=== PATIENT | female | born 1980 | race Hispanic/Latino ===

== ENCOUNTER → 2023-07-12 06:46 | Outpatient (REF) | payer OTHER, SELFPAY ==
[2023-07-12 07:10] LABS: Urine Albumin Negative (Neg - Trace); Urine Bilirubin Negative (Negative); Urine Character Clear (Clear); Urine Color Yellow; Urine Glucose Negative (Negative); Urine Ketone Negative (Negative); Urine Leukocyte Negative (Negative); Urine Nitrite Negative (Negative); Urine Occult Blood 1+ (Negative); Urine Urobilinogen Negative (Neg - 1+)
[2023-07-12 07:45] LABS: Urine Red Blood Cell 0-2 /HPF (0-2); Urine White Cell 0-2 /HPF (0-5)
[2023-07-12 08:18] LABS: ALT (SGPT) 21 U/L (0-35); AST (SGOT) 26 U/L (14-36); Albumin 4.3 g/dl (3.5-5.0); Alkaline Phosphatase 106 U/L (38-126); Blood Urea Nitrogen 10 mg/dl (7-17); Carbon Dioxide 26 mmol/L (22-30); Chloride 103 mmol/L (98-107); Glucose 127 mg/dl (70-99); Potassium 3.9 mmol/L (3.5-5.1); Sodium 136 mmol/L (135-145); Total Bilirubin 0.5 mg/dl (0.2-1.3); Total Protein 7.1 g/dl (6.3-8.2); eGFR > 60.00
[2023-07-12 08:31] LABS: Glycohemoglobin (HgbA1c) 6.2 % (4.0-5.6)
[2023-07-12 08:40] LABS: Vitamin D, 25-OH*** 33.8 ng/mL (30-80)
== END ==
LOC: CLINIC 06:46
PROVIDERS: ATTENDING PHYSICIAN Nurse Practitioner Acute Care
DX: E55.9 Vitamin D deficiency, unspecified (principal); R73.03 Prediabetes; R31.21 Asymptomatic microscopic hematuria
CPT/HCPCS: 36415; 80053; 81003; 81015; 82306; 83036

== ENCOUNTER → 2023-07-15 09:20 | Outpatient (REF) | payer OTHER, SELFPAY ==
[2023-07-15 10:05] LABS: Urine Albumin Negative (Neg - Trace); Urine Bilirubin Negative (Negative); Urine Character Clear (Clear); Urine Color Yellow; Urine Glucose Negative (Negative); Urine Ketone Negative (Negative); Urine Leukocyte Negative (Negative); Urine Nitrite Negative (Negative); Urine Occult Blood Trace (Negative); Urine Urobilinogen Negative (Neg - 1+)
[2023-07-15 10:33] LABS: Urine Squamous Cell 16-20 /LPF (Few)
[2023-07-15 10:34] LABS: Urine Bacteria Few (Negative); Urine Red Blood Cell 0-2 /HPF (0-2)
== END ==
LOC: REG 09:20
PROVIDERS: ATTENDING PHYSICIAN Nurse Practitioner Acute Care
DX: R31.21 Asymptomatic microscopic hematuria (principal)
CPT/HCPCS: 81003; 81015; 87086

== ENCOUNTER → 2023-08-10 14:45 | Outpatient (REF) | payer OTHER, SELFPAY | LOC: CLINIC 14:45 | PROVIDERS: ATTENDING PHYSICIAN Nurse Practitioner Acute Care | DX: R31.9 Hematuria, unspecified (principal) | CPT/HCPCS: 76770 ==

== ENCOUNTER → 2023-08-18 16:04 | Outpatient (REF) | payer OTHER, SELFPAY ==
[2023-08-18 18:06] LABS: Calcium 10.1 mg/dl (8.4-10.2)
[2023-08-18 18:37] LABS: TSH Reflex To Free T4 2.76 uIU/ml (0.47-4.68)
[2023-08-20 08:57] LABS: Intact PTH 84.5 pg/ml (13.6-85.8)
== END ==
LOC: REG 16:04
DX: R31.9 Hematuria, unspecified (principal)
CPT/HCPCS: 36415; 83970; 84443

== ENCOUNTER → 2024-03-12 13:46 | Outpatient (REF) | payer OTHER, SELFPAY | LOC: WDC 13:46 | PROVIDERS: ATTENDING PHYSICIAN Internal Medicine | DX: Z12.31 Encounter for screening mammogram for malignant neoplasm of breast (principal) | CPT/HCPCS: 77063; 77067 ==

== ENCOUNTER 2024-10-12 22:47 | Emergency (ER) | payer SELFPAY ==
[2024-10-12 22:49] VITALS: BP 148/100
--- NOTE | 2024-10-12 23:10 | ED.GENMED ---
History of Present Illness
<Srinivas Riggs PA-C - Last Filed: 10/13/24 20:56>
General
Chief Complaint: Flank Pain
Source: patient and spouse
Time Seen by Provider: 10/12/24 23:07
History of Present Illness
History of Present Illness:
44-year-old female with past medical history of previous cholecystectomy presenting to the emergency department for evaluation of sudden onset left flank pain accompanied with nausea and vomiting that started approximately 2 hours prior to arrival.
No fevers, chills, rigors. Patient denies any history of similar. She did not attempt any medications prior to arrival. Social history noncontributory. Surgical history was noted for the previous cholecystectomy. Pain currently 9 out of 10,
constant, radiating from the left flank to the left lower abdomen, sharp.
Past History
<Srinivas Riggs PA-C - Last Filed: 10/13/24 20:56>
Past History
ED Past Medical History: None
ED Past Surgical History: Cholecystectomy
Social History
Tobacco: Non-smoker
Alcohol: None
Drug: None
Personal:
Living: with family
Employment: Not employed
Review of Systems
<Srinivas Riggs PA-C - Last Filed: 10/13/24 20:56>
Review of Systems
All Other Systems: ROS reviewed and negative except as documented in HPI and ROS
Phy Exam
<Srinivas Riggs PA-C - Last Filed: 10/13/24 20:56>
Physical Exam
Physical Exam:
GENERAL: Alert , appears in discomfort
EYE: clear conjunctiva b/l
HEAD: NCAT
ENT: o/p clr, mmm.
CARDIAC: Regular rate and rhythm .
LUNGS: Clear breath sounds bilaterally, no acute respiratory distress, no wheezes/rales/rhonchi
ABDOMEN: Soft, moderate left CVA tenderness, no r/g,
NEUROLOGICAL: Alert and oriented
SKIN: Warm and dry, skin intact.
MUSCULOSKELETAL: well perfused.
PSYCH: Normal and appropriate interaction.
Scores
<Srinivas Riggs PA-C - Last Filed: 10/13/24 20:56>
Heart Failure Risk
Heart Failure Risk Score: Not Applicable
Heart Score for Chest Pain Patients
STEMI patient?: Not applicable
Withdrawal Assessment of Alcohol
Withdrawal Assessment Completed?: Not applicable
Course
<Srinivas Riggs PA-C - Last Filed: 10/13/24 20:56>
Orders/Labs/Results
Orders:
Orders
10/12/24 23:10
0.9% Sodium Chloride 1000 ml [Nss] 1,000 ml IV BOLUS
Ketorolac [Toradol] 30 mg IV NOW STA
Ondansetron Injectable [Zofran] 4 mg IV NOW STA
Test Result ONCE
10/12/24 23:34
Complete Blood Count/With Diff Urgent
Comprehensive Metabolic Panel Urgent
HCG, Serum Qualitative Screen Urgent
Lipase Urgent
Urinalysis Reflex To Culture Urgent
Date Specimen was Collected: 10/12/24
Time Specimen was Collected: 23:24
Urine Microscopic Reflex Cult Urgent
10/13/24 00:01
CT Abd/pel Without Iv Or Oral Urgent
Reason For Exam: sudden left flank pain
10/13/24 00:41
Morphine Sulfate 4 mg IV NOW STA
Ondansetron Injectable [Zofran] 4 mg IV NOW STA
10/13/24 02:08
Hydrocodone 5/APAP 325 [[place] 5/325] 2 tablet PO NOW STA
Abnormal Lab Results
10/12/24
23:34
WBC 13.7 H 10^3/uL
(4.8-10.8)
MPV 11.0 H fL
(7.4-10.4)
Abs Immat Gran (auto) 0.1 H 10^3/uL
(0-0.05)
Absolute Neuts (auto) 10.6 H 10^3/uL
(1.4-6.5)
Absolute Monos (auto) 0.9 H 10^3/uL
(0.1-0.6)
Neutrophils % 77.2 H %
(42.2-75.2)
Lymphocytes % 14.8 L %
(20.5-51.1)
BUN 18 H mg/dl
(7-17)
Glucose 180 H mg/dl
(70-99)
Urine Ketones 1+ A
(Negative)
Ur Occult Blood Reflex 4+ A
(Negative)
Urine RBC 7-10 A /HPF
(0-2)
Urine Albumin (Reflex) 2+ A
(Neg - Trace)
10/12/24 23:34
10/12/24 23:34
Vital Signs
Initial and Last Documented VS:
Initial Vital Signs
Temp Pulse Resp BP Pulse Ox
98.7 F 88 15 148/100 100
10/12/24 22:49 10/12/24 22:49 10/12/24 22:49 10/12/24 22:49 10/12/24 22:49
Last Documented Vital Signs
Temp Pulse Resp BP Pulse Ox
98.7 F 75 20 107/64 98
10/12/24 22:49 10/13/24 02:25 10/13/24 02:25 10/13/24 02:25 10/13/24 02:44
<Yan Hager, DO - Last Filed: 10/13/24 01:54>
Orders/Labs/Results
Orders:
Orders
10/12/24 23:10
0.9% Sodium Chloride 1000 ml [Nss] 1,000 ml IV BOLUS
Ketorolac [Toradol] 30 mg IV NOW STA
Ondansetron Injectable [Zofran] 4 mg IV NOW STA
Test Result ONCE
10/12/24 23:34
Complete Blood Count/With Diff Urgent
Comprehensive Metabolic Panel Urgent
HCG, Serum Qualitative Screen Urgent
Lipase Urgent
Urinalysis Reflex To Culture Urgent
Date Specimen was Collected: 10/12/24
Time Specimen was Collected: 23:24
Urine Microscopic Reflex Cult Urgent
10/13/24 00:01
CT Abd/pel Without Iv Or Oral Urgent
Reason For Exam: sudden left flank pain
10/13/24 00:41
Morphine Sulfate 4 mg IV NOW STA
Ondansetron Injectable [Zofran] 4 mg IV NOW STA
10/13/24 02:08
Hydrocodone 5/APAP 325 [[place] 5/325] 2 tablet PO NOW STA
Abnormal Lab Results
10/12/24
23:34
WBC 13.7 H 10^3/uL
(4.8-10.8)
MPV 11.0 H fL
(7.4-10.4)
Abs Immat Gran (auto) 0.1 H 10^3/uL
(0-0.05)
Absolute Neuts (auto) 10.6 H 10^3/uL
(1.4-6.5)
Absolute Monos (auto) 0.9 H 10^3/uL
(0.1-0.6)
Neutrophils % 77.2 H %
(42.2-75.2)
Lymphocytes % 14.8 L %
(20.5-51.1)
BUN 18 H mg/dl
(7-17)
Glucose 180 H mg/dl
(70-99)
Urine Ketones 1+ A
(Negative)
Ur Occult Blood Reflex 4+ A
(Negative)
Urine RBC 7-10 A /HPF
(0-2)
Urine Albumin (Reflex) 2+ A
(Neg - Trace)
10/12/24 23:34
10/12/24 23:34
Vital Signs
Initial and Last Documented VS:
Initial Vital Signs
Temp Pulse Resp BP Pulse Ox
98.7 F 88 15 148/100 100
10/12/24 22:49 10/12/24 22:49 10/12/24 22:49 10/12/24 22:49 10/12/24 22:49
Last Documented Vital Signs
Temp Pulse Resp BP Pulse Ox
98.7 F 75 20 107/64 98
10/12/24 22:49 10/13/24 02:25 10/13/24 02:25 10/13/24 02:25 10/13/24 02:44
<Srinivas Riggs PA-C - Last Filed: 10/13/24 20:56>
MDM/Problems Addressed
Differential Diagnosis Includes:
Renal/ureteral colic/kidney stone, urinary tract infection/pyelonephritis, , shingles, diverticulitis
MDM/Problems Addressed:
44-year-old female presenting to the ER for evaluation of sudden onset left flank pain accompanied with nausea and vomiting. Patient appears in pretty significant discomfort/pain at time of my exam. She did not attempt any medications prior to
arrival. Based off presentation and history I have most suspicion for renal/ureteral colic secondary to a kidney stone. Toradol, Zofran and fluids ordered for symptomatic relief. Labs and CT imaging ordered.
<Srinivas Riggs PA-C - Last Filed: 10/13/24 20:56>
*Radiology
Radiology exam reviewed: radiology read reviewed
*Pulse Oximetry
Patient hypoxic: no
*Critical Care Note
Total Time (30-74mins, 75-104mins- exclusive of procedures): Not Applicable
<Srinivas Riggs PA-C - Last Filed: 10/13/24 20:56>
Patient Management
Escalation/DeEscalation of care consider admission/obs:
6 mm kidney stone at the proximal left ureter. Patient feeling better. Stable for discharge home and outpatient management.
ED Attending Note
<Srinivas Riggs PA-C - Last Filed: 10/13/24 20:56>
-
Portions of this chart may have been created with voice recognition software.� Occasional wrong word or��sound alike� substitutions may have occurred due to the inherent limitations of voice recognition software.
<Yan Hager DO - Last Filed: 10/13/24 01:54>
ED Attending Note
Patient seen and examined by attending physician: Yes
I performed the substantive portion of visit, reviewed & personally made and approve the management plan that is documented in note by myself or MOISES.: Yes
ED Attending Note:
44-year-old female presents with flank pain. Found to have 6 mm ureteral stone. Feeling much better. No evidence of infection. Okay for outpatient management
Discharge Plan
Departure
Patient Disposition: Home (Routine Discharge)
Date of Disposition: 10/13/24
Time of Disposition: 01:50
Patient with high blood pressure during this ER visit?: No
Discharge Problem:
Ureterolithiasis
Instructions: Kidney Stones (DC)
Prescriptions:
New
hydrocodone-acetaminophen 5-325 mg tablet
2 tab PO Q6H PRN (Reason: Pain) Qty: 14 0RF
tamsulosin [Flomax] 0.4 mg capsule
0.4 mg PO HS Qty: 20 0RF
No Action
oxycodone-acetaminophen 5 MG/325 MG tablet
1 tab PO Q4HPRN PRN (Reason: pain) Qty: 16 0RF
Referrals:
Nelson Keenan MD [Active] -
NONE,* [Family Provider] -
Activity Restrictions/Additional Instructions:
Angelica abundante l�quido. Consulte con [facility] o ur�logo en la pr�xima semana para seguimiento y reevaluaci�n. Regrese de inmediato si presenta fiebre, dolor persistente, v�mitos persistentes o cualquier otra inquietud.
Please drink plenty of fluids. Please see your doctor or urology in the next 1 week for follow-up and reevaluation. Return immediately for fevers, intractable pain, intractable vomiting or any other concerns
Interventions
Interventions:
*Risk Screen - Suicide Last Done: 10/12/24 22:49
*General Assessment Last Done: 10/12/24 22:49
*Neglect/Abuse Screening Last Done: 10/12/24 22:49
*ED- Fall Risk Assessment Last Done: 10/12/24 23:37
*ED COVID-19 Vaccine History Last Done: 10/12/24 23:37
*Nursing Disposition Last Done: 10/13/24 02:44
SU-Iqfsvp-Oonecdmdmi Assessment Last Done: 10/12/24 23:37
ED-Female Genitourinary Assessment Last Done: 10/12/24 23:37
Discharge Date and Time
Discharge Date/Time: 10/13/24 02:45
Print Language: [place]AST [place]
[2024-10-12 23:33] VITALS: BMI 41.0
[2024-10-12 23:41] LABS: % Basophils 0.7 % (0-2); % Eosinophils 0.6 % (0-6); % Immature Granulocytes 0.4 % (0-0.5); % Lymphocytes 14.8 % (20.5-51.1); % Monocytes 6.3 % (1.7-9.3); % Neutrophils 77.2 % (42.2-75.2); Absolute Basophils 0.1 10^3/uL (0-0.2); Absolute Eosinophils 0.1 10^3/uL (0-0.7); Absolute Immature Granulocytes 0.1 10^3/uL (0-0.05); Absolute Monocytes 0.9 10^3/uL (0.1-0.6); Absolute Neutrophils 10.6 10^3/uL (1.4-6.5); Hematocrit 38.9 % (37.0-47.0); Hemoglobin 13.3 g/dL (12.0-16.0); Mean Corp Hgb Conc. 34.2 g/dL (33.0-37.0); Mean Corpuscular Hgb 29.9 pg (27.0-31.0); Mean Corpuscular Volume 87.4 fL (81.0-99.0); Nucleated Red Blood Cells % 0 %; Platelet Count 300 10^3/uL (130-400); Red Blood Cell Count 4.45 10^6/uL (4.20-5.40); Red Cell Dist. Width 12.7 % (11.5-14.5); White Blood Cell Count 13.7 10^3/uL (4.8-10.8)
[2024-10-12 23:45] LABS: Urine Albumin 2+ (Neg - Trace); Urine Bilirubin Negative (Negative); Urine Character Clear (Clear); Urine Glucose Negative (Negative); Urine Ketone 1+ (Negative); Urine Leukocyte Negative (Negative); Urine Nitrite Negative (Negative); Urine Occult Blood 4+ (Negative); Urine Urobilinogen Negative (Neg - 1+)
[2024-10-12 23:53] LABS: HCG, Serum Qualitative Screen Negative
[2024-10-12 23:57] LABS: ALT (SGPT) 15 U/L (0-35); AST (SGOT) 17 U/L (14-36); Albumin 4.7 g/dl (3.5-5.0); Alkaline Phosphatase 72 U/L (38-126); Blood Urea Nitrogen 18 mg/dl (7-17); Carbon Dioxide 26 mmol/L (22-30); Chloride 107 mmol/L (98-107); Estimated Creatinine Clearance 101 ml/min; Glucose 180 mg/dl (70-99); Lipase 85 U/L (23-300); Potassium 4.3 mmol/L (3.5-5.1); Sodium 140 mmol/L (135-145); Total Bilirubin 0.4 mg/dl (0.2-1.3); Total Protein 7.8 g/dl (6.3-8.2); eGFR > 60.00
[2024-10-13] MEDS: TORADOL 30 MG IV (00:01)
[2024-10-13] MEDS: NSS 1000 IV (00:01)
[2024-10-13] MEDS: ZOFRAN 4 MG IV ×2 (00:01→00:49)
[2024-10-13 00:07] LABS: Urine Color Straw
[2024-10-13] MEDS: MORPHINE SULFATE 4 MG IV (00:48)
[2024-10-13 00:54] VITALS: BP 125/75
[2024-10-13 02:25] VITALS: BP 107/64
[2024-10-13] MEDS: NORCO 5/325 2 TABLET PO (02:31)
== END 2024-10-13 02:45 | disposition home or self-care (01) ==
LOC: EMR 22:47
PROVIDERS: Physician Assistant Medical; EMERGENCY PHYSICIAN Emergency Medicine
DX: N20.1 Calculus of ureter (principal)
CPT/HCPCS: 99285; 96374; 96375 ×2; 96361; 96376; 74176; 80053; 81003; 81015; 83690; 84703; 85025

== ENCOUNTER 2024-11-09 09:33 | Inpatient (IN) | payer SELFPAY ==
[2024-11-08 13:44] VITALS: BP 151/94
[2024-11-08 14:04] LABS: Urine Albumin 1+ (Neg - Trace); Urine Bilirubin Negative (Negative); Urine Character Clear (Clear); Urine Color Yellow; Urine Glucose Negative (Negative); Urine Ketone Negative (Negative); Urine Leukocyte Negative (Negative); Urine Nitrite Negative (Negative); Urine Occult Blood 4+ (Negative); Urine Urobilinogen Negative (Neg - 1+)
[2024-11-08] MEDS: TORADOL 15 MG IV (14:18)
[2024-11-08 14:29] LABS: % Basophils 0.5 % (0-2); % Eosinophils 1.9 % (0-6); % Immature Granulocytes 0.4 % (0-0.5); % Lymphocytes 15.8 % (20.5-51.1); % Monocytes 9.3 % (1.7-9.3); % Neutrophils 72.1 % (42.2-75.2); Absolute Basophils 0.1 10^3/uL (0-0.2); Absolute Eosinophils 0.3 10^3/uL (0-0.7); Absolute Immature Granulocytes 0.1 10^3/uL (0-0.05); Absolute Lymphocytes 2.1 10^3/uL (1.2-3.4); Absolute Monocytes 1.2 10^3/uL (0.1-0.6); Absolute Neutrophils 9.4 10^3/uL (1.4-6.5); Hematocrit 38.7 % (37.0-47.0); Hemoglobin 13.3 g/dL (12.0-16.0); Mean Corp Hgb Conc. 34.4 g/dL (33.0-37.0); Mean Corpuscular Hgb 29.6 pg (27.0-31.0); Nucleated Red Blood Cells % 0 %; Platelet Count 276 10^3/uL (130-400); Red Cell Dist. Width 12.6 % (11.5-14.5); White Blood Cell Count 13.1 10^3/uL (4.8-10.8)
--- NOTE | 2024-11-08 14:40 | ED.GENMED ---
History of Present Illness
General
Chief Complaint: Abdominal Pain
Time Seen by Provider: 11/08/24 13:50
History of Present Illness
History of Present Illness:
44-year-old female presents to the emergency department for evaluation of left lower quadrant and left flank pain that began this morning. Feels comparable to last kidney stone however significantly worse. Also reports left lower quadrant bloating
that is not comparable to prior. Denies any fevers or vomiting. She is uncertain as to whether or not her kidney stone that was diagnosed in late September has actually passed as of this point
Past History
Past History
ED Past Medical History: None
ED Past Surgical History: Cholecystectomy
Social History
Tobacco: Non-smoker
Alcohol: None
Drug: None
Personal:
Living: with family
Employment: Not employed
Review of Systems
Review of Systems
Allergies reviewed?: Yes
All Other Systems: ROS reviewed and negative except as documented in HPI and ROS
Phy Exam
Physical Exam
Physical Exam:
GEN: Visibly uncomfortable, tearful
HEENT: Oral mucosa moist, no scleral icterus
Cardiac: Regular rate and rhythm, no murmur
Lung: No respiratory distress, no tachypnea
Abdomen: Soft, mild left lower quadrant tenderness, no rigidity, positive left CVA tenderness
MSK: No gross deformity or injuries
Skin: Good color, no pallor or jaundice, no rashes
Neuro: AO x3, moves all extremities freely
Psych: Calm, cooperative
Course
Orders/Labs/Results
Orders:
Orders
11/08/24 13:56
Urinalysis Reflex To Culture Urgent
Date Specimen was Collected: 11/08/24
Time Specimen was Collected: 13:53
Urine Microscopic Reflex Cult Urgent
11/08/24 14:06
CT Abd/pel Without Iv Or Oral Urgent
Comment:
Reason For Exam: L flank pain
Ketorolac [Toradol] 15 mg IV NOW STA
Test Result ONCE
11/08/24 14:16
Complete Blood Count/With Diff Urgent
Comprehensive Metabolic Panel Urgent
HCG, Serum Qualitative Screen Urgent
11/08/24 15:44
HYDROmorphone [Dilaudid] 0.5 mg IV NOW STA
Abnormal Lab Results
11/08/24 11/08/24
13:56 14:16
WBC 13.1 H 10^3/uL
(4.8-10.8)
MPV 11.0 H fL
(7.4-10.4)
Abs Immat Gran (auto) 0.1 H 10^3/uL
(0-0.05)
Absolute Neuts (auto) 9.4 H 10^3/uL
(1.4-6.5)
Absolute Monos (auto) 1.2 H 10^3/uL
(0.1-0.6)
Lymphocytes % 15.8 L %
(20.5-51.1)
Glucose 130 H mg/dl
(70-99)
Ur Occult Blood Reflex 4+ A
(Negative)
Urine RBC 40-50 A /HPF
(0-2)
Urine Albumin (Reflex) 1+ A
(Neg - Trace)
11/08/24 14:16
11/08/24 14:16
Vital Signs
Initial and Last Documented VS:
Initial Vital Signs
Temp Pulse Resp BP Pulse Ox
97.8 F 89 15 151/94 100
11/08/24 13:44 11/08/24 13:44 11/08/24 13:44 11/08/24 13:44 11/08/24 13:44
Last Documented Vital Signs
Temp Pulse Resp BP Pulse Ox
97.8 F 89 15 111/73 98
11/08/24 13:44 11/08/24 13:44 11/08/24 13:44 11/08/24 18:30 11/08/24 18:45
MDM/Problems Addressed
MDM/Problems Addressed:
Due to persistent pain and likely nonmoving stone will admit the patient to the urology service for stenting in the morning, she is clinically well and not septic thus no antibiotics are indicated
*Pulse Oximetry
SaO2: 100
Oxygen Mode of Delivery: Room air
*Critical Care Note
Total Time (30-74mins, 75-104mins- exclusive of procedures): Not Applicable
ED Attending Note
-
Portions of this chart may have been created with voice recognition software.� Occasional wrong word or��sound alike� substitutions may have occurred due to the inherent limitations of voice recognition software.
Discharge Plan
Departure
Patient Disposition: Admit
Date of Disposition: 11/08/24
Time of Disposition: 17:30
Admit to: Med/Surg
Presentation/result/management discussed w/ accepting MD/DO: U[facility]
Discharge Problem:
Ureterolithiasis
Prescriptions:
No Action
No Current Medications
0
Referrals:
Sherif Couch MD [Family Provider, Family Practice]
Interventions
Interventions:
*Risk Screen - Suicide Last Done: 11/08/24 13:44
*General Assessment Last Done: 11/08/24 13:44
*Neglect/Abuse Screening Last Done: 11/08/24 13:44
*ED COVID-19 Vaccine History Last Done: 11/08/24 13:44
WB-Xbcehs-Buajddsykt Assessment Last Done: 11/08/24 15:00
Discharge Date and Time
Print Language: KYRGYZ
[2024-11-08 14:46] LABS: Urine Squamous Cell >30 /LPF (Few)
[2024-11-08 14:47] LABS: Urine Amorphous Seen; Urine Hyaline Cast 0-2 /LPF (0-2)
[2024-11-08 14:49] LABS: HCG, Serum Qualitative Screen Negative
[2024-11-08 14:50] LABS: Urine White Cell 0-2 /HPF (0-5)
[2024-11-08 14:53] LABS: ALT (SGPT) 14 U/L (0-35); AST (SGOT) 16 U/L (14-36); Albumin 4.3 g/dl (3.5-5.0); Alkaline Phosphatase 67 U/L (38-126); Blood Urea Nitrogen 14 mg/dl (7-17); Calcium 9.6 mg/dl (8.4-10.2); Carbon Dioxide 22 mmol/L (22-30); Chloride 107 mmol/L (98-107); Glucose 130 mg/dl (70-99); Potassium 4.1 mmol/L (3.5-5.1); Sodium 136 mmol/L (135-145); Total Bilirubin 0.6 mg/dl (0.2-1.3); eGFR > 60.00
[2024-11-08 14:53] LABS: Urine Mucus Moderate; Urine Red Blood Cell 40-50 /HPF (0-2)
[2024-11-08] MEDS: DILAUDID 0.5 MG IV ×2 (16:19→22:59)
[2024-11-08 18:30] VITALS: BP 111/73
--- NOTE | 2024-11-08 19:43 | HPS.HSE ---
Family Physician
-
Family Physician: Sherif Couch
Chief Complaint
-
abdominal pain
History of Present Illness
a 44 years old female with no PMH, present to ER with a complain of LT flank pain and LT lower abdominal pain that started this am. Pain rated this am 4-5/10 of pain scale, but get worse this afternoon. Patient was not able to get in comfortable
position. Symptoms associated with nausea. Denies vomiting, constipation, diarrhea, chills, fever, sob, chest pain. Patient denies difficulty/ burning urination. Patient had similar episode last month, had abd/Plvs CT showed approximate 6 mm
calculus in the proximal LT ureter with mild left renal collecting system dilatation patient was advised to drink plenty of fluids and f/u with urology for reevaluation. Patient with no prescribed meds at home.
Medical History
Past Medical History
Past Medical History: Reports None
Past Surgical History: Reports Cholecystectomy
Social History
Tobacco: Non-smoker
Alcohol: None
Drug: None
Personal:
Living: With Family
Employment: Not Employed
Family History
Family History: Not pertinent
Allergies / Home Medications
Allergies reflects when Allergies were last updated in [facility].
Home Medications with original date entered in [facility]
Allergy/Medication List:
Home Medications Table - record
�Medication �Instructions �Recorded �Confirmed
No Meds [No Current Medications] 11/08/24 11/08/24
Patient Allergies
Allergy/AdvReac Type Severity Reaction Status Date / Time
No Known Allergies Allergy Verified 07/02/17 14:39
Review of Systems
-
History Source: Patient
A 12 point ROS was completed and negative except as noted: Yes
Constitutional: Reports No Symptoms
Respiratory: Reports No Symptoms
Cardiac: Reports No Symptoms
Abdomen/GI: Reports Abdominal Pain (LLQ) and Nausea
: Reports No Symptoms and Flank Pain
Musculoskeletal: Reports No Symptoms
Neurological: Reports No Symptoms
Physical Exam
Vital Signs
Vital Signs
Temp Pulse Resp BP Pulse Ox
97.8 F 89 15 111/73 98
11/08/24 13:44 11/08/24 13:44 11/08/24 13:44 11/08/24 18:30 11/08/24 18:45
Physical Exam
General: No Apparent Distress (Patient received pain meds prior to the assessment)
Respiratory: Clear
Cardiac: Regular Rhythm
GI: Soft, Normal Bowel Sounds and Tender (LLQ)
Neuro: Awake and AO x 3
Psych: Calm
Laboratory Results
-
11/08/24 14:16
11/08/24 14:16
Laboratory Results
Total Bilirubin 0.6 mg/dl (0.2-1.3) 11/08/24 14:16
AST 16 U/L (14-36) 11/08/24 14:16
ALT 14 U/L (0-35) 11/08/24 14:16
Alkaline Phosphatase 67 U/L (38-126) 11/08/24 14:16
Data Reviewed
-
CT Scan: Discussed with Patient
Impression/Plan
-
Abd/Plvs CT shows 8 mm proximal left ureteral stone causing mild left hydronephrosis and hydroureter. Stable
Nonobstructing right renal stones. New
Mildly dilated appendix with a tiny appendicolith. No secondary findings to suggest acute appendicitis. Clinical and laboratory correlation recommended. New
Small fat-containing umbilical hernia. Stable.
IMPRESSION:
ureteral stone
PLAN:
-Admit/observation med-surg (Dr. Gamble/ Urology services).
-NPO.
-IVF.
-analgesics as needed.
-DVT prophylaxis Lovenox sq
-Code status Full code
[2024-11-08 20:50] VITALS: BP 133/93; BMI 39.9
[2024-11-08] MEDS: NSS 1000 IV (21:47)
[2024-11-08] MEDS: TUMS CHEWABLE TABLET 200 MG PO (21:47)
[2024-11-08] MEDS: MYLICON 80 MG PO (21:47)
[2024-11-08] MEDS: FLUSH (NSS) 1 FLUSH IV (23:00)
[2024-11-08 23:29] VITALS: BP 127/80
[2024-11-09] VITALS (7 sets, daily range): BP systolic 99–129; BP diastolic 41–88
--- NOTE | 2024-11-09 00:46 | PTCARENOTE ---
Pt aaox3 able to make his needs known. Pt on PRN pain meds as ordered. Pt oob ambulates to BR with no complaints.Pt oriented to room & call ribera in reach.
[2024-11-09] MEDS: TYLENOL 650 MG PO (04:34)
[2024-11-09 08:05] LABS: Hematocrit 40.5 % (37.0-47.0); Hemoglobin 13.6 g/dL (12.0-16.0); Mean Corp Hgb Conc. 33.6 g/dL (33.0-37.0); Mean Corpuscular Hgb 29.4 pg (27.0-31.0); Mean Corpuscular Volume 87.7 fL (81.0-99.0); Mean Platelet Volume 11.6 fL (7.4-10.4); Platelet Count 292 10^3/uL (130-400); Red Blood Cell Count 4.62 10^6/uL (4.20-5.40); Red Cell Dist. Width 12.8 % (11.5-14.5); White Blood Cell Count 7.9 10^3/uL (4.8-10.8)
[2024-11-09] MEDS: NSS 1000 IV (08:17)
[2024-11-09 08:43] LABS: Blood Urea Nitrogen 14 mg/dl (7-17); Calcium 9.2 mg/dl (8.4-10.2); Carbon Dioxide 23 mmol/L (22-30); Chloride 108 mmol/L (98-107); Estimated Creatinine Clearance > 125 ml/min; Glucose 137 mg/dl (70-99); Potassium 4.2 mmol/L (3.5-5.1); Sodium 139 mmol/L (135-145); eGFR > 60.00
--- NOTE | 2024-11-09 08:48 | W.SUR.PREOP ---
Pre-Operative Surgical Note
-
I have examined this patient prior to the performance of the scheduled procedure.
The patient's condition is unchanged from the time of the current History and
Physical and the patient is able to undergo the scheduled procedure.
[2024-11-09] MEDS: DILAUDID 0.25 MG IV (09:01)
[2024-11-09] MEDS: Pyridium 200 MG PO (11:18)
[2024-11-09] MEDS: DILAUDID 0.5 MG IV (12:03)
[2024-11-09] MEDS: DIAZEPAM 5 MG PO (12:32)
== END 2024-11-09 13:40 | disposition home or self-care (01) | DRG 661 ==
LOC: 4 EAST ACU 09:33
PROVIDERS: Nurse Practitioner Family; Physician Assistant; ADMITTING PHYSICIAN Specialist; EMERGENCY PHYSICIAN Emergency Medicine; FAMILY PHYSICIAN Family Medicine
PROC: 0TF78ZZ Fragmentation in Left Ureter, Via Natural or Artificial Opening Endoscopic (ICD-10-PCS; 2024-11-09)
PROC: 0T778DZ Dilation of Left Ureter with Intraluminal Device, Via Natural or Artificial Opening Endoscopic (ICD-10-PCS; 2024-11-09)
DX: N13.2 Hydronephrosis with renal and ureteral calculous obstruction (principal); K42.9 Umbilical hernia without obstruction or gangrene; Z90.49 Acquired absence of other specified parts of digestive tract
CPT/HCPCS: 74018; 74176; 76000; 80048; 80053; 81003; 81015; 84703; 85025; 85027; 96374; 96375; 99285; C1894; C2617

== ENCOUNTER → 2024-11-24 07:44 | Outpatient (REF) | payer OTHER, SELFPAY ==
[2024-11-24 09:13] LABS: Calcium 9.7 mg/dl (8.4-10.2); Uric Acid 5.0 mg/dl (2.5-6.2)
== END ==
LOC: CLINIC 07:44
PROVIDERS: ATTENDING PHYSICIAN Internal Medicine
DX: N20.0 Calculus of kidney (principal)
CPT/HCPCS: 36415; 83970; 84550

== ENCOUNTER → 2024-11-26 07:08 | Outpatient (REF) | payer OTHER, SELFPAY ==
[2024-11-26 15:02] LABS: 24 Hour Urine Total Volume 1200 ml
[2024-11-29 06:24] LABS: 24 Hour Urine Total Volume 1200 mL; Creatinine, Urine 24 Hour 924 mg/d (700-1600); Creatinine, Urine per Volume 77 mg/dL; Oxalate, Urine 17 mg/L; Oxalate, Urine 24 Hr 20 mg/d (13-40); Urine Collection Length 24 hr
== END ==
LOC: REG 07:08
PROVIDERS: ATTENDING PHYSICIAN Internal Medicine
DX: N20.0 Calculus of kidney (principal)
CPT/HCPCS: 36415; 81050; 82340; 83945; 84560

== ENCOUNTER → 2024-12-19 07:55 | Outpatient (REF) | payer OTHER, SELFPAY ==
[2024-12-19 10:01] LABS: Calcium 9.4 mg/dl (8.4-10.2)
== END ==
LOC: CLINIC 07:55
PROVIDERS: ATTENDING PHYSICIAN Specialist; FAMILY PHYSICIAN Internal Medicine
DX: N13.2 Hydronephrosis with renal and ureteral calculous obstruction (principal); E21.3 Hyperparathyroidism, unspecified
CPT/HCPCS: 36415; 78071; 83970; A9500

== ENCOUNTER → 2025-04-20 07:02 | Outpatient (REF) | payer OTHER, SELFPAY ==
[2025-04-20 09:42] LABS: Glycohemoglobin (HgbA1c) 6.3 % (4.0-5.9)
[2025-04-20 09:44] LABS: Vitamin D, 25-OH*** 32.1 ng/mL (30-80)
== END ==
LOC: CLINIC 07:02
PROVIDERS: ATTENDING PHYSICIAN Internal Medicine
DX: E21.3 Hyperparathyroidism, unspecified (principal); R73.03 Prediabetes
CPT/HCPCS: 36415; 82306; 83036; 84100